=== PATIENT | female | born 1965 | race Caucasian/White ===

== ENCOUNTER 2019-03-15 12:39 | Outpatient (CLI) | payer MEDICAID, SELFPAY ==
--- NOTE | 2019-03-18 15:58 | W.PREOPHP ---
Date of service: 03/15/19 Assessment and Plan (1) Tear of medial meniscus of right knee: Current visit: No Status: Chronic Right knee arthroscopy with partial medial meniscectomy Details of surgery were discussed with patient as well as risks and pertinent anatomy. All questions were answered. Qualifiers: Tear current or old: current Encounter type: subsequent encounter Meniscus tear of knee type: unspecified type Qualified Code(s): S83.241D - Other tear of medial meniscus, current injury, right knee, subsequent encounter History of Present Illness Chief Complaint: Right knee injury Narrative: Agnieszka comes in today for a preop history and physical for a right knee arthroscopy. She had an injury to her right knee while carrying a laundry basket back in October. She states that she had a twisting injury to her right knee at that time causing some severe pain. She did end up going to the emergency room in [facility] where she was diagnosed with a sprain. After conservative treatment with physical therapy, an MRI was obtained because she was not getting any better. This MRI ruled out possibly fracture patella according to the ordering providers note, but it did show a torn medial meniscus. Since she has continued to show no signs of improvement after physical therapy, Dr. Rodriguez does suggest a right knee arthroscopy, and patient is anxious to proceed. Pertinent Surgical Information Agnieszka does have a history of mild COPD, but she only has to use inhalers when she is sick. Otherwise she does not have any symptoms of COPD. Patient denies history of hypertension, CVA, [place], angina, asthma, renal or liver disorders, hepatitis, bleeding disorders, diabetes, immune or thyroid disorders. No complications from anesthesia. Review of Systems Constitutional Denies fever(s) ENT Denies dizziness and Denies sore throat Cardiovascular Denies chest pain, Denies palpitations and Denies dyspnea Respiratory Denies cough and Denies dyspnea Gastrointestinal Denies abdominal pain, Denies melena, Denies hematochezia, Denies diarrhea, Denies nausea and Denies vomiting Genitourinary Denies hematuria and Denies dysuria Neurologic Denies dizziness Endocrine Denies palpitations [facility] Medical History Chest pain (Acute) [place] lesion of lung (Acute) Disorder of trunk (Acute) Female stress incontinence (Acute) Goiter (Acute) History of incontinence of feces (Acute) Hyperlipemia (Acute) Joint pain (Acute) Low back pain (Acute) Pain in right knee (Acute) Palpitations (Acute) Vitamin D deficiency (Acute) COPD (chronic obstructive pulmonary disease) (Chronic) Hyperthyroidism (Chronic) Kidney stone (Chronic) LAUREL (obstructive sleep apnea) (Chronic) Surgical History CTS (carpal tunnel syndrome) (Acute) History of abdominal hysterectomy (Chronic ~2003) History of hernia repair (Chronic ~2000) History of laparoscopy (Chronic) History of lithotripsy (Chronic) History of thyroid surgery (Chronic ~2005) History of tubal ligation (Chronic ~1988) Family History Other Alcohol abuse Depressive disorder Diabetes Hypertension Hypothyroid Lung cancer Parkinson disease Social History Smoking/Tobacco Use Status: Former Tobacco Use Alcohol Intake: never Drug use: Never Substance use type: does not use Do you feel safe at home: Yes Do you feel safe in your relationship?: Yes Meds Home Medications Medication Instructions Recorded Confirmed Type aspirin 325 mg tablet 325 mg PO DAILY PRN 02/14/19 03/15/19 History levothyroxine 200 mcg capsule 200 mcg PO DAILY 02/14/19 03/15/19 History rosuvastatin 10 mg tablet 10 mg PO DAILY 02/14/19 03/15/19 History albuterol sulfate [ProAir HFA] 2 puff INHALATION QID PRN 03/15/19 03/15/19 History cholecalciferol (vitamin D3) 1,000 unit PO DAILY 03/15/19 03/15/19 History [Vitamin D3] Allergies Allergy/AdvReac Type Severity Reaction Status Date / Time bee venom protein (honey bee) Allergy Anaphylaxsi Verified 03/15/19 13:00 s simvastatin AdvReac Intermediate Urinary Verified 03/15/19 13:00 incontinence Exam [facility] Head: normocephalic and atraumatic General nose exam: no nasal discharge Throat: uvula midline and no uvular edema Other: soft palate rises symmetrically, no erythema Eyes Conjunctivae: conjunctivae normal Sclera: sclerae normal Pupils: PERRL Resp Effort & Inspection: normal respiratory effort Auscultation: clear to auscultation bilaterally and no wheezes Cardio Rate: regular rate Rhythm: regular rhythm Heart Sounds: S1 normal, S2 normal and no murmurs GI Palpation: soft, no hepatosplenomegaly and nontender Auscultation: normal bowel sounds
--- NOTE | 2019-03-18 16:09 | HPE_ITS ---
Date of service: 03/15/19 Assessment and Plan (1) Tear of medial meniscus of right knee: Current visit: No Status: Chronic Right knee arthroscopy with partial medial meniscectomy Details of surgery were discussed with patient as well as risks and pertinent anatomy. All questions were answered. Qualifiers: Tear current or old: current Encounter type: subsequent encounter Meniscus tear of knee type: unspecified type Qualified Code(s): S83.241D - Other tear of medial meniscus, current injury, right knee, subsequent encounter History of Present Illness Chief Complaint: Right knee injury Narrative: Agnieszka comes in today for a preop history and physical for a right knee arthroscopy. She had an injury to her right knee while carrying a laundry basket back in October. She states that she had a twisting injury to her right knee at that time causing some severe pain. She did end up going to the emergency room in [facility] where she was diagnosed with a sprain. After conservative treatment with physical therapy, an MRI was obtained because she was not getting any better. This MRI ruled out possibly fracture patella according to the ordering providers note, but it did show a torn medial meniscus. Since she has continued to show no signs of improvement after physical therapy, Dr. Rodriguez does suggest a right knee arthroscopy, and patient is anxious to proceed. Pertinent Surgical Information Agnieszka does have a history of mild COPD, but she only has to use inhalers when she is sick. Otherwise she does not have any symptoms of COPD. Patient denies history of hypertension, CVA, [place], angina, asthma, renal or liver disorders, hepatitis, bleeding disorders, diabetes, immune or thyroid disorders. No complications from anesthesia. Review of Systems Constitutional Denies fever(s) ENT Denies dizziness and Denies sore throat Cardiovascular Denies chest pain, Denies palpitations and Denies dyspnea Respiratory Denies cough and Denies dyspnea Gastrointestinal Denies abdominal pain, Denies melena, Denies hematochezia, Denies diarrhea, Denies nausea and Denies vomiting Genitourinary Denies hematuria and Denies dysuria Neurologic Denies dizziness Endocrine Denies palpitations [facility] Medical History Chest pain (Acute) [place] lesion of lung (Acute) Disorder of trunk (Acute) Female stress incontinence (Acute) Goiter (Acute) History of incontinence of feces (Acute) Hyperlipemia (Acute) Joint pain (Acute) Low back pain (Acute) Pain in right knee (Acute) Palpitations (Acute) Vitamin D deficiency (Acute) COPD (chronic obstructive pulmonary disease) (Chronic) Hyperthyroidism (Chronic) Kidney stone (Chronic) LAUREL (obstructive sleep apnea) (Chronic) Surgical History CTS (carpal tunnel syndrome) (Acute) History of abdominal hysterectomy (Chronic ~2003) History of hernia repair (Chronic ~2000) History of laparoscopy (Chronic) History of lithotripsy (Chronic) History of thyroid surgery (Chronic ~2005) History of tubal ligation (Chronic ~1988) Family History Other Alcohol abuse Depressive disorder Diabetes Hypertension Hypothyroid Lung cancer Parkinson disease Social History Smoking/Tobacco Use Status: Former Tobacco Use Alcohol Intake: never Drug use: Never Substance use type: does not use Do you feel safe at home: Yes Do you feel safe in your relationship?: Yes Meds Home Medications Medication Instructions Recorded Confirmed Type aspirin 325 mg tablet 325 mg PO DAILY PRN 02/14/19 03/15/19 History levothyroxine 200 mcg capsule 200 mcg PO DAILY 02/14/19 03/15/19 History rosuvastatin 10 mg tablet 10 mg PO DAILY 02/14/19 03/15/19 History albuterol sulfate [ProAir HFA] 2 puff INHALATION QID PRN 03/15/19 03/15/19 History cholecalciferol (vitamin D3) 1,000 unit PO DAILY 03/15/19 03/15/19 History [Vitamin D3] Allergies Allergy/AdvReac Type Severity Reaction Status Date / Time bee venom protein (honey bee) Allergy Anaphylaxsi Verified 03/15/19 13:00 s simvastatin AdvReac Intermediate Urinary Verified 03/15/19 13:00 incontinence Exam [facility] Head: normocephalic and atraumatic General nose exam: no nasal discharge Throat: uvula midline and no uvular edema Other: soft palate rises symmetrically, no erythema Eyes Conjunctivae: conjunctivae normal Sclera: sclerae normal Pupils: PERRL Resp Effort & Inspection: normal respiratory effort Auscultation: clear to auscultation bilaterally and no wheezes Cardio Rate: regular rate Rhythm: regular rhythm Heart Sounds: S1 normal, S2 normal and no murmurs GI Palpation: soft, no hepatosplenomegaly and nontender Auscultation: normal bowel sounds
== END 2019-03-15 12:59 ==
PROVIDERS: PCP Physician Assistant Medical; Visit Provider Orthopaedic Surgery
DX: S83.241D Other tear of medial meniscus, current injury, right knee, subsequent encounter (principal); Z01.818 Encounter for other preprocedural examination
CPT/HCPCS: NC

== ENCOUNTER 2019-03-21 11:38 | Day surgery (SDC) | payer MEDICAID, SELFPAY ==
[2019-03-21] VITALS (7 sets, daily range): BP systolic 110–135; BP diastolic 52–76; PULSE 75–99; RESP 14–26; TEMP 36.4–36.8; O2SAT 94–99
[2019-03-21] MEDS: Lactated Ringers 1,000 ML 80 ML IV (12:05)
[2019-03-21] MEDS: ceFAZolin 3,000 MG in Normal Saline 100 ML 200 MG IVPB (12:55)
--- NOTE | 2019-03-21 14:14 | W.PM.DSUDISC ---
Discharge Plan Disposition Patient Disposition: HOME Condition: Good Discharge Details Reason For Visit: Arthroscopy R knee Attending Provider: Bienvenido Rodriguez Primary Care Provider: Ashley Estrada Home Meds and New Rx's Prescriptions: New ibuprofen 800 mg tablet 800 mg PO TID Qty: 30 RF: 0 hydrocodone-acetaminophen 5-325 mg tablet 1 tab PO Q6H PRN (Reason: pain) Qty: 14 RF: 0 Continued levothyroxine 200 mcg capsule 200 mcg PO DAILY RF: 0 rosuvastatin 10 mg tablet 10 mg PO DAILY RF: 0 aspirin 325 mg tablet 325 mg PO DAILY PRNRF: 0 cholecalciferol (vitamin D3) [Vitamin D3] 1,000 unit Capsule 1,000 unit PO DAILY RF: 0 albuterol sulfate [ProAir HFA] 90 mcg/actuation Hfa Aerosol Inhaler 2 puff INHALATION QID PRNRF: 0 Discharge Instructions Additional Instructions: Crutches to walk. Discontinue crutches when you can step on R leg without much pain. Elevate R leg on 1-2 pillows as much as possible for next 48 hours. May remove dressings, shower, and get incisions wet after 48 hours. Leave incisions uncovered when they are dry and sealed. Apply the cryocuff to R knee 4 times/day for 1 hour each time to prevent swelling and decrease pain. Out patient physical therapy to rehab R knee post-arthroscopy starting on Fri or Mon. Follow up with in 2 weeks. Take ibuprofen as prescribed, 3 times/day for 10 days, to decrease inflammation and pain. Take the hydrocodone for breakthru pain, if needed. Equipment/Supplies: Partial Weight Bearing Crutches Activity:: Activity as Tolerated Remove Dressings/Wound Care:: 48 hours Shower/Bathe:: 48 hours Diet:: As Tolerated Discharge Orders Discharge Orders: Discharge Order (Routine); Ordered 03/21/19 Ordered By: Bienvenido Rodriguez DS: Diagnosis Discharge Diagnosis (1) Chondromalacia patellae of right knee: Status: Acute
[2019-03-21] MEDS: HYDROcodone 5/Acetaminophen 325 TAB PO (15:12)
[2019-03-21] MEDS: oxyCODONE-CR 10 MG TABCR PO (15:13)
--- NOTE | 2019-03-22 12:15 | ROE_ITS ---
REPORT OF OPERATIVE PROCEDURE DATE OF SURGERY March 21, 2019 PREOPERATIVE DIAGNOSIS Internal derangement right knee. POSTOPERATIVE DIAGNOSES Internal derangement right knee due to chondromalacia of the patella and medial femoral condyle. PROCEDURE Arthroscopy of the right knee with limited chondroplasty patella and medial femoral condyle. ANESTHESIA General. SURGEON Bienvenido Rodriguez M.D. INDICATIONS This is a 50-year-old white female who has struggled due to persistent pain and decreased mobility ev er since she had a twisting injury to her right knee in October of 2018. She has not responded to phy sical therapy. She had an MRI scan, which suggested a possible meniscal injury. Because of the contin ued dysfunction and failure to overcome pain after five months post injury, I felt that an arthroscop ic examination was mandatory to obtain a working diagnosis that would provide a basis for definitive treatment. The risks and complications of the procedure were explained to the patient in detail preop eratively. PROCEDURE DESCRIPTION The patient was taken to the Operating Room on 03/21/2019. She was placed supine on the operating tabl e and a general anesthetic was administered. The right thigh was placed in the arthroscopic leg hold er and then the right knee was prepped and draped free in the usual sterile fashion. Arthroscopic portals were established. The right knee was inflated with normal saline solution using the arthroscopy pump and then routine arthroscopic examination proceeded. Intraoperative photographs to document the findings. Upon entering the medial compartment, she was noted to have some grade II chondromalacia involving a portion of the medial femoral condyle anteriorly. The medial meniscus appeared intact. I probed the m edial meniscus under direct vision and the meniscus was fully stable. No occult tears were identified . Using the high radiofrequency electrocautery wand I debrided the loose articular cartilage from the medial femoral condyle. The intracondylar notch showed intact anterior and posterior cruciate ligaments. A portion of the ant erior fat pad was resected to provide better access to the lateral compartment. The lateral compartment showed normal articular cartilage. The lateral meniscus appeared intact and i n fact was probed under direct vision and it was fully stable. The suprapatellar pouch was clear. The lateral gutter was cleared. In the medial gutter, there was so me hypertrophic synovium consistent with a medial patella plica. The plica was resected using the 90- degree high radiofrequency electrocautery wand, restoring the volume of the medial gutter. Finally, the patellofemoral joint was accessed. Patellar tracking was anatomic. There was no patellar tilt. There was an extensive area of grade II chondromalacia on the patella involving the lateral fa cet and the middle facet. There were no abnormalities in the trochlea of the femur. Using the high ra diofrequency electrocautery wand, 90 degree the loose articular was debrided back to stable cartilage on the patella. At this point, the knee was copiously irrigated with saline solution using the arth roscopy pump until the outflow was clear. 15 cc of 0.5% Marcaine with epinephrine solution along with 4 mg of morphine were instilled into the right knee and all instruments were removed from the knee. The arthroscopy portals were infiltrated with 0.5% Marcaine with epinephrine solution and then were c losed with interrupted #4-0 Nylon sutures. The wound was dressed with Xeroform gauze, sterile gauze, 4x4s, ABD pad, and wrapped with 6-inch Yosi bandages. The patient tolerated the procedure well. Blood loss was minimal. Anesthesia was reversed without complication. She was discharged to the Day Surger [facility] Unit in good condition. The patient was discharged home for the Day Surgery Unit when fully recovered from her general anesth esia. She was given instructions to use crutches to walk, weightbearing as tolerated to the right knee. She is to elevate her right knee on one to two pillows as much as possible for the next 48 hours. She may discontinue the crutches as soon as discomfort allows. She is to use a Cryo/Cuff to the right knee four times a day for an hour each time. She may remove her dressing, shower and get her incisions wet after 48 hours. She can leave the incision uncovered when they are dry and sealed. She was given a prescription for inflammation of ibuprofen 800 mg p.o. t.i.d. for 10 days, and she wa s given a prescription for breakthrough pain of hydrocodone with APAP 5/325, one tablet every six radha rs if needed. She will start outpatient Outpatient Physical Therapy on either Tuesday or a Tuesday for rehab her righ t knee post arthroscopy. She will followup with Dr. Rodriguez in two weeks.
== END 2019-03-21 16:25 | disposition home or self-care (01) ==
PROVIDERS: PCP Physician Assistant Medical; Visit Provider Orthopaedic Surgery
PROC: (CPT 29870; principal; 2019-03-21 13:00)
DX: M22.41 Chondromalacia patellae, right knee (principal); M94.261 Chondromalacia, right knee; X50.0XXS Overexertion from strenuous movement or load, sequela; J44.9 Chronic obstructive pulmonary disease, unspecified
CPT/HCPCS: 29877; J0690; J1100; J1885